=== PATIENT | female | born 1990 | race Caucasian/White ===

== ENCOUNTER 2018-11-27 11:00 | Inpatient (IN) | payer OTHER ==
[~2018-11-27] VITALS: Ht 157.5 cm; Wt 87.1 kg
[2018-11-27] MEDS ORDERED: PREN-217 PO (11:40)
[2018-11-27 11:41] VITALS: BP 107/62
[2018-11-27 12:15] LABS: BASOPHILS % (AUTO) 0.4 % (0.0-2.0); EOSINOPHILS % (AUTO) 0.9 % (1.0-6.0); HEMATOCRIT 32.9 % (36-46); LYMPHOCYTES # (AUTO) 1.2 K/uL (1.0-4.8); LYMPHOCYTES % (AUTO) 17.9 % (22.0-44.0); MEAN CORPUSCULAR HEMOGLOBIN 31.1 pg (26.0-34.0); MEAN CORPUSCULAR HGB CONC 33.4 G/dL (31.0-37.0); MEAN CORPUSCULAR VOLUME 93 fL (80-100); MONOCYTES # (AUTO) 0.4 K/uL (0.1-1.0); MONOCYTES % (AUTO) 5.7 % (2.0-9.0); NEUTROPHILS # (AUTO) 4.9 K/uL (1.8-7.7); NEUTROPHILS % (AUTO) 75.1 % (40.0-70.0); PLATELET COUNT (AUTO) 145 K/uL (150-450); RED BLOOD CELL COUNT(AUTO) 3.54 MIL/uL (4.00-5.20); RED CELL DISTRIBUTION WIDTH 15.3 % (11.5-14.5)
[2018-11-27] MEDS ORDERED: RINGERS SOLUTION,LACTATED 1,000 ML IV ONE (13:41)
[2018-11-27] MEDS ORDERED: RINGERS SOLUTION,LACTATED 1,000 ML IV PRN (13:42)
[2018-11-27] MEDS ORDERED: OXYTOCIN 30 UNITS/LACT RINGERS 500 ML IV ONE (13:42)
[2018-11-27] MEDS ORDERED: LIDOCAINE/PF 1% 30 ML VIAL INJ PRN (13:45)
[2018-11-27] MEDS ORDERED: CARBOPROST TROMETHAMINE 250 MCG/ML AMP IM PRN (13:45)
[2018-11-27] MEDS ORDERED: AMPICILLIN SODIUM 2 GM/NS 100 ML IV ONE (13:45)
[2018-11-27] MEDS ORDERED: METHYLERGONOVINE MALEATE 0.2 MG/ML VIAL IM PRN (13:45)
[2018-11-27] MEDS ORDERED: MISOPROSTOL 50 MCG TABLET PO ONE (13:45)
[2018-11-27] MEDS ORDERED: METOCLOPRAMIDE HCL 5 MG/ML 2 ML VIAL IVP PRN (13:45)
[2018-11-27] MEDS ORDERED: CITRIC ACID/SODIUM CITRATE 30 ML SOLUTION UDCUP PO PRN (13:45)
[2018-11-27] MEDS: RINGERS SOLUTION,LACTATED 1,000 ML IV SCH ×2 (14:32→22:49)
[2018-11-27] MEDS: OXYGEN THERAPY IH SCH (20:00)
[2018-11-27] MEDS: MISOPROSTOL 50 MCG TABLET PO SCH (20:30)
[2018-11-27 20:41] VITALS: BP 124/80
[2018-11-27] MEDS: AMPICILLIN SODIUM 1 GM/NS 50 ML IV SCH ×2 (21:45→22:49)
[2018-11-28] MEDS: MISOPROSTOL 50 MCG TABLET PO SCH (00:55)
[2018-11-28] MEDS: AMPICILLIN SODIUM 1 GM/NS 50 ML IV SCH ×5 (02:41→21:29)
[2018-11-28] MEDS: OXYTOCIN 30 UNITS/LACT RINGERS 500 ML IV PRN (05:43)
[2018-11-28] MEDS: RINGERS SOLUTION,LACTATED 1,000 ML IV SCH ×3 (05:44→22:58)
[2018-11-28] MEDS: OXYGEN THERAPY IH SCH ×2 (08:00→20:00)
[2018-11-28] MEDS ORDERED: MISOPROSTOL 50 MCG TABLET VG ONE (20:00)
[2018-11-29] MEDS ORDERED: BUPIVACAINE 0.25%/EPI 1:200,000/PF 10 ML VIAL ONE (00:50)
[2018-11-29] MEDS ORDERED: ROPIVACAINE HCL/PF 0.2% 100 ML ED ONE ×2 (00:50→09:03)
[2018-11-29] MEDS: AMPICILLIN SODIUM 1 GM/NS 50 ML IV SCH ×2 (02:01→06:07)
[2018-11-29] MEDS: OXYTOCIN 30 UNITS/LACT RINGERS 500 ML IV PRN (07:34)
[2018-11-29] MEDS: RINGERS SOLUTION,LACTATED 1,000 ML IV SCH (09:17)
[2018-11-29] MEDS ORDERED: MORPHINE SULFATE/PF 0.5 MG/ML 10 ML AMP ONE (09:29)
[2018-11-29] MEDS ORDERED: FentaNYL CITRATE-PF 100 MCG/2 ML VIAL ONE (09:29)
[2018-11-29] MEDS ORDERED: ACETAMINOPHEN 1000 MG/ISO-OSM 100 ML IV ONE (09:29)
[2018-11-29] MEDS ORDERED: MIDAZOLAM HCL 2 MG/2 ML VIAL ONE (10:16)
[2018-11-29] MEDS ORDERED: KETAMINE HCL 50 MG/ML 10 ML VIAL ONE (10:23)
[2018-11-29] MEDS ORDERED: GUM MASTIC/STORAX/MSAL/ALCOHOL LIQUID 0.67 ML VIAL TP ONE (10:36)
[2018-11-29] MEDS ORDERED: NALOXONE HCL 0.4 MG/ML VIAL IVP PRN (10:45)
[2018-11-29] MEDS ORDERED: FentaNYL CITRATE-PF 100 MCG/2 ML VIAL IVP PRN (10:45)
[2018-11-29] MEDS ORDERED: ONDANSETRON HCL 4 MG/2 ML VIAL IVP PRN (10:45)
[2018-11-29] MEDS ORDERED: OxyCODONE HCL/ACETAMINOPHEN 5-325 MG TABLET PO PRN ×2 (10:45→11:00)
[2018-11-29] MEDS ORDERED: DiphenhydrAMINE HCL 50 MG/ML VIAL IVP PRN (10:45)
[2018-11-29] MEDS ORDERED: OXYTOCIN 20 UNITS/LACT RINGERS 1,000 ML IV SCH (10:57)
[2018-11-29] MEDS ORDERED: GLYCERIN/WITCH HAZEL LEAF 40 PADS JAR TP PRN (11:00)
[2018-11-29] MEDS: KETOROLAC TROMETHAMINE 30 MG/ML VIAL IVP SCH (18:01)
[2018-11-29] MEDS ORDERED: OXYGEN THERAPY IH SCH ×2 (20:00)
[2018-11-29] MEDS: DEXTROSE 5%-0.45% SODIUM CHL 1,000 ML IV SCH (20:50)
[2018-11-30] MEDS: KETOROLAC TROMETHAMINE 30 MG/ML VIAL IVP SCH ×2 (00:17→06:23)
[2018-11-30] MEDS: DEXTROSE 5%-0.45% SODIUM CHL 1,000 ML IV SCH (05:27)
[2018-11-30] MEDS ORDERED: LIDOCAINE/PF 2% 5 ML VIAL IM ONE (05:30)
[2018-11-30] MEDS ORDERED: PROPOFOL 1% 20 ML VIAL IVP ONE (05:30)
[2018-11-30] MEDS ORDERED: METOCLOPRAMIDE HCL 5 MG/ML 2 ML VIAL IVP ONE (05:30)
[2018-11-30] MEDS ORDERED: DEXAMETHASONE SOD PHOS 4 MG/ML VIAL IVP ONE (05:30)
[2018-11-30] MEDS ORDERED: KETOROLAC TROMETHAMINE 60 MG/2 ML VIAL IM ONE (05:30)
[2018-11-30] MEDS ORDERED: NEOSTIGMINE METHYLSULFATE 1 MG/ML 10 ML VIAL IVP ONE (05:30)
[2018-11-30 07:40] LABS: BASOPHILS % (AUTO) 0.4 % (0.0-2.0); EOSINOPHILS % (AUTO) 0.5 % (1.0-6.0); LYMPHOCYTES # (AUTO) 1.7 K/uL (1.0-4.8); LYMPHOCYTES % (AUTO) 21.3 % (22.0-44.0); MEAN CORPUSCULAR HEMOGLOBIN 31.2 pg (26.0-34.0); MEAN CORPUSCULAR HGB CONC 33.5 G/dL (31.0-37.0); MEAN CORPUSCULAR VOLUME 93 fL (80-100); MONOCYTES # (AUTO) 0.5 K/uL (0.1-1.0); MONOCYTES % (AUTO) 5.6 % (2.0-9.0); NEUTROPHILS # (AUTO) 5.9 K/uL (1.8-7.7); NEUTROPHILS % (AUTO) 72.2 % (40.0-70.0); PLATELET COUNT (AUTO)-OB 106 K/uL (150-450); RED BLOOD CELL COUNT(AUTO) 2.25 MIL/uL (4.00-5.20); RED CELL DISTRIBUTION WIDTH 15.5 % (11.5-14.5)
[2018-11-30 07:45] LABS: HEMATOCRIT 20.9 % (36-46)
[2018-11-30] MEDS: MAGNESIUM HYDROXIDE SUSPENSION 30 ML UDCUP PO SCH ×2 (09:23→22:16)
[2018-11-30] MEDS: SOD FERRIC GLUC COMPLX/SUCROSE 125 MG in SODIUM CHLORIDE 0.9% 100 ML IV SCH (09:26)
[2018-11-30] MEDS: IBUPROFEN 600 MG TABLET PO PRN ×2 (12:21→18:31)
[2018-11-30] MEDS: OxyCODONE HCL/ACETAMINOPHEN 5-325 MG TABLET PO PRN ×2 (12:21→17:23)
[2018-11-30 16:20] LABS: BASOPHILS % (AUTO) 0.2 % (0.0-2.0); EOSINOPHILS % (AUTO) 0.2 % (1.0-6.0); HEMATOCRIT 21.9 % (36-46); HEMOGLOBIN 7.3 g/dL (12.0-16.0); LYMPHOCYTES # (AUTO) 1.3 K/uL (1.0-4.8); LYMPHOCYTES % (AUTO) 14.4 % (22.0-44.0); MEAN CORPUSCULAR HEMOGLOBIN 31.2 pg (26.0-34.0); MEAN CORPUSCULAR HGB CONC 33.2 G/dL (31.0-37.0); MEAN CORPUSCULAR VOLUME 94 fL (80-100); MONOCYTES # (AUTO) 0.4 K/uL (0.1-1.0); MONOCYTES % (AUTO) 4.7 % (2.0-9.0); NEUTROPHILS % (AUTO) 80.5 % (40.0-70.0); PLATELET COUNT (AUTO)-OB 119 K/uL (150-450); RED BLOOD CELL COUNT(AUTO) 2.33 MIL/uL (4.00-5.20); RED CELL DISTRIBUTION WIDTH 15.7 % (11.5-14.5)
[2018-12-01] MEDS: IBUPROFEN 600 MG TABLET PO PRN (01:32)
[2018-12-01] MEDS: OxyCODONE HCL/ACETAMINOPHEN 5-325 MG TABLET PO PRN (01:33)
[2018-12-01] MEDS: SOD FERRIC GLUC COMPLX/SUCROSE 125 MG in SODIUM CHLORIDE 0.9% 100 ML IV SCH (09:55)
[2018-12-01] MEDS ORDERED: SODIUM CHLORIDE 0.9% 100 ML ONE (10:10)
[2018-12-01] MEDS ORDERED: IBUP-2071 PO (13:03)
[2018-12-01] MEDS ORDERED: FERR-89 PO (13:03)
[2018-12-01] MEDS ORDERED: DSS100 PO (13:04)
[2018-12-01] MEDS ORDERED: PERCT PO ×2 (13:05)
== END 2018-12-01 17:00 | disposition home or self-care (01) | DRG 787 ==
LOC: OBSVTOIN 11:00 → 4S 11:00
PROVIDERS: ADMIT Obstetrics & Gynecology; ATTEND Obstetrics & Gynecology
PROC: 10D00Z1 Extraction of Products of Conception, Low, Open Approach (ICD-10-PCS; principal; 2018-11-29)
DX: O99.824 Streptococcus B carrier state complicating childbirth (principal); O41.03X0 Oligohydramnios, third trimester, not applicable or unspecified; O69.82X0 Labor and delivery complicated by other cord entanglement, without compression, not applicable or unspecified; O61.9 Failed induction of labor, unspecified; Z3A.38 38 weeks gestation of pregnancy; Z37.0 Single live birth
CPT/HCPCS: 76811; 87081; J0131; J0290; J0690; J1100; J1885; J2250; J2274; J2590; J2704; J2765; J2795; J2916; J3010; J3490; J7050; J7120